=== PATIENT | female | born 1960 | race African-American/Black ===

== ENCOUNTER → 2018-09-25 | Outpatient (CLI) | payer MEDICAID | END | disposition home or self-care (01) | LOC: Rad HDHVI 09:27 | PROVIDERS: ATTEND Internal Medicine Cardiovascular Disease | DX: G45.9 Transient cerebral ischemic attack, unspecified (principal); I11.0 Hypertensive heart disease with heart failure; I50.33 Acute on chronic diastolic (congestive) heart failure | CPT/HCPCS: 93306; 93880 ==

== ENCOUNTER → 2020-01-21 | Outpatient (CLI) | payer MEDICAID | END | disposition home or self-care (01) | LOC: Rad HDHVI 13:48 | PROVIDERS: ATTEND Internal Medicine Cardiovascular Disease | DX: R00.2 Palpitations (principal); R07.89 Other chest pain | CPT/HCPCS: 93306 ==

== ENCOUNTER → 2022-06-08 | Outpatient (CLI) | payer MEDICAID | END | disposition home or self-care (01) | LOC: Rad HDHVI 09:04 | PROVIDERS: ATTEND Internal Medicine Cardiovascular Disease | DX: I34.0 Nonrheumatic mitral (valve) insufficiency (principal); I10 Essential (primary) hypertension; R06.02 Shortness of breath | CPT/HCPCS: 93306 ==

== ENCOUNTER 2024-09-30 11:01 | Outpatient (CLI) | payer MEDICAID | END 2024-09-30 17:00 | disposition home or self-care (01) | LOC: Rad HDHVI 11:01 | PROVIDERS: ATTEND Internal Medicine Cardiovascular Disease | DX: I51.89 Other ill-defined heart diseases (principal) | CPT/HCPCS: 93306 ==